=== PATIENT | female | born 1995 | race Hispanic/Latino ===

== ENCOUNTER 2017-05-05 21:57 | Emergency (ER) | payer OTHER ==
[~2017-05-05] VITALS: Ht 152.4 cm; Wt 51.8 kg
[~2017-05-05 21:57] MED LIST: NAPROSYN500 MG PO
[2017-05-05 23:46] LABS: HEMATOCRIT 35.2 % (36.0-46.0); MCH 29.3 PG (29.0-34.0); MCHC 33.5 G/DL (30.0-36.0); MCV 87.3 FL (83-99); MEAN PLAT.VOLUME 9.2 uM^3 (9.5-12.4); PLATELET COUNT 230 K/uL (156-360); RBC DIS.WIDTH-CV 12.5 % (11.8-14.6); RBC DIS.WIDTH-SD 40.3 % (39-53); RED BLOOD COUNT 4.03 M/uL (3.80-5.20); WHITE BLOOD COUNT 5.1 K/uL (4.1-10.2)
[2017-05-06 00:02] LABS: CHLORIDE 107 mEq/L (99-109); POTASSIUM 3.4 mEq/L (3.7-5.4); SODIUM 137 mEq/L (136-147)
[2017-05-06 00:04] LABS: GLUCOSE 88 mg/dL (70-99)
[2017-05-06 00:06] LABS: ANION GAP 9 MEQ/L (2-14)
[2017-05-06 00:08] LABS: GFR ESTIMATE (CALCULATED) > 59 mL/min/
[2017-05-06 00:09] LABS: UREA NITROGEN (BUN) 12 mg/dL (9-23)
[2017-05-06 00:16] LABS: QUANTITATIVE HCG < 4.0 MIU/ML
[2017-05-06 00:58] VITALS: BP 105/78
== END 2017-05-06 01:05 | disposition home or self-care (01) ==
LOC: EME 21:57
PROVIDERS: Emergency Medicine
DX: F32.9 Major depressive disorder, single episode, unspecified (principal); H92.03 Otalgia, bilateral; R51 Headache; R42 Dizziness and giddiness
CPT/HCPCS: 80048; 84702; 85027; 93005; 99281; 99284; J7030

== ENCOUNTER 2017-09-15 22:07 | Emergency (ER) | payer OTHER ==
[~2017-09-15] VITALS: Ht 165.1 cm; Wt 36.9 kg
[2017-09-15 23:14] LABS: HEMATOCRIT 35.9 % (36.0-46.0); HEMOGLOBIN 12.1 G/DL (11.9-15.5); MCH 29.4 PG (29.0-34.0); MCHC 33.7 G/DL (30.0-36.0); MCV 87.1 FL (83-99); PLATELET COUNT 251 K/uL (156-360); RBC DIS.WIDTH-CV 12.2 % (11.8-14.6); RBC DIS.WIDTH-SD 39.3 % (39-53); RED BLOOD COUNT 4.12 M/uL (3.80-5.20); WHITE BLOOD COUNT 7.9 K/uL (4.1-10.2)
[2017-09-15 23:23] LABS: ALBUMIN 4.4 g/dL (3.2-4.8); CHLORIDE 108 mEq/L (99-109); POTASSIUM 3.8 mEq/L (3.7-5.4); SODIUM 138 mEq/L (136-147)
[2017-09-15 23:25] LABS: GLUCOSE 98 mg/dL (70-99); TOTAL PROTEIN 7.4 g/dL (6.4-8.3)
[2017-09-15 23:27] LABS: TOTAL BILIRUBIN 0.6 mg/dL (0.0-1.0)
[2017-09-15 23:28] LABS: SERUM ETHYL ALCOHOL < 10 mg/dL
[2017-09-15 23:29] LABS: ALKALINE PHOSPHATASE 62 IU/L (3-129); CREATININE 0.7 mg/dL (0.6-1.3); GFR ESTIMATE (CALCULATED) > 59 mL/min/
[2017-09-15 23:30] LABS: AST (GOT) 19 IU/L (2-34); UREA NITROGEN (BUN) 10 mg/dL (9-23)
[2017-09-15 23:32] LABS: ALT (GPT) 13 IU/L (3-49)
[2017-09-16 00:12] VITALS: BP 135/66
== END 2017-09-16 00:23 | disposition home or self-care (01) ==
LOC: EME 22:07
PROVIDERS: Emergency Medicine
DX: F43.21 Adjustment disorder with depressed mood (principal)
CPT/HCPCS: 80053; 81025; 85027; 90837; 99281; 99284; G0480